=== PATIENT | male | born 1985 | race Caucasian/White ===

== ENCOUNTER → 2019-10-05 | Outpatient (CLI) | payer OTHER ==
[~2019-10-05] MED LIST: ALBU2.5V14 NEB; IOHEXOL 180 MG/ML 10 ML VIAL. ONE; MAGN400T5 PO; OMEP-229 PO; RIBO100T PO; TIOT18CA IH; methylPREDNISolone ACETATE 40 MG/ML VIAL. ONE; methylPREDNISolone ACETATE 80 MG/ML VIAL. ONE
--- NOTE | 2019-10-05 16:04 | PAIN ---
DATE OF SERVICE: 10/05/2019 INITIAL CONSULTATION FOR PAIN CLINIC CHIEF COMPLAINT: Low back and left lower extremity pain. HISTORY OF PRESENT ILLNESS: This is a 34-year-old male who presents with history of pain for about 1 year in the low back, left lower extremity on and off, originally much more intense about a year ago and then eased up and now it is getting more intense again and more painful in the low back radiating to posterior gluteus, posterior thigh, posterior calf into the foot with numbness and tingling in the foot and toes on the left side only. The patient reports no specific injury or accident he is aware of. Had a lot of heavy duty in the past, which had back pain on and off for years, but now much worse again over the past 11 months to a year. The patient reports the pain is now constant, is throbbing, numbness and tingling in the foot, changes during the day, worse with activity, standing, walking, changing positions, radiating in the left lower extremity, awakens him from sleep at least 3-5 times a night, does not affect his bowel or bladder control, but does affect his ability to walk with significant fatigability of the left leg. The patient has had epidural injections in the past with good results, also physical therapy and exercise, which he is doing on and off which all were helpful to some extent. The patient is taking Tylenol, which does decrease the pain to about a week ago. The patient reports a disability rating from 0-10, 10 being the worst, is a 6 with family and home responsibilities, 9 with recreation, 5 with social activity, 8 with occupation and sexual behavior, 5 with self-care and 6 with life support activities. The patient did have MRI scan of the lumbar spine showing at the L5-S1 level, large central and left greater than right paracentral disk protrusion with annular tear with severe narrowing on the left greater than right lateral recess and abutment of the bilateral descending S1 nerve root with mild spinal stenosis at that level as well. PAST MEDICAL HISTORY: Significant for hearing loss bilaterally, also arthritis. PREVIOUS SURGERY: Includes a right knee scope. CURRENT MEDICATIONS: Include magnesium, omeprazole, albuterol, tiotropium, and riboflavin. ALLERGIES: THE PATIENT IS ALLERGIC TO PREDNISONE ORALLY AND PERCOCET. FAMILY HISTORY: Significant for cancer, heart disease, fibromyalgia and vasculitis. SOCIAL HISTORY: The patient does not drink alcohol, does not smoke, does not use any illegal, illicit or recreational drugs. He is , lives with his spouse, lives locally in [place]. REVIEW OF SYSTEMS: The patient's review of systems is positive for those items mentioned in history of present illness. All systems reviewed and otherwise negative. It is complete, full and well documented on the patient's chart. PHYSICAL EXAMINATION: VITAL SIGNS: The patient's blood pressure 156/92, pulse 67, respirations 18, temperature 98.1 degrees Fahrenheit, height 6 feet 4 inches, weight is 303 pounds. GENERAL: The patient is awake, alert, oriented, appropriate, very pleasant demeanor. HEENT: Shows normocephalic, atraumatic. Extraocular movements are intact and symmetrical. Oral cavity: Mucous membranes moist and pink. Dentition is intact. NECK: Shows anterior throat supple without palpable lymphadenopathy noted. Swallow reflex symmetrical. CHEST: Shows normal on inspection. Breath sounds are clear bilaterally. HEART: Shows S1, S2 clear. No murmurs auscultated. ABDOMEN: Soft, nontender, nondistended. No palpable organomegaly is noted. No rebound or guarding demonstrated. BACK: Shows spine grossly in the midline. Normal appearing thoracic kyphosis and lumbar lordotic curvature. Lumbar paraspinous muscle shows symmetrical on inspection, with palpation shows some mild tenderness in the low lumbar distribution, slightly more on the left than the right, but symmetrical without evidence of atrophy, hypertrophy, no trigger points, no asymmetry. The patient has full rotational motion of lumbar spine, both laterally as well as extension and flexion without significant difficulty. No tenderness over the spinous processes, sacrum or sacroiliac regions. EXTREMITIES: Lower extremities show deep tendon reflexes 2+ in the patellar, 1+ tendo-calcaneus tendons. Motor exam is strong with 5/5 dorsiflexion, extension, quadriceps and hamstring flexion, symmetrical and equal bilaterally. Lower extremities are warm and dry to touch, equal in color and appearance. Peripheral pulses are 1+ posterior tibia. No peripheral edema is noted. Straight leg raise noted to be positive on the left at about 40 degrees, decreased with knee flexion, right side is negative. Gaenslen's and Checo's maneuvers are negative bilaterally as well. The patient is able to stand, stand on his toes without difficulty without loss of balance, walks with normal appearing gait without any assistive devices to ambulate. SKIN: Shows warm and dry, good turgor. No edema. No sores or bruising throughout. IMPRESSION: 1. This is a 34-year-old male with about 1 year history of low back and left lower extremity pain in a radicular fashion. 2. MRI scan of lumbar spine as noted. 3. Arthritis history. PLAN: Options were discussed with the patient including conservative medical management, physical therapies and interventional techniques. He would like to pursue interventional techniques. We discussed a lumbar epidural steroid injection using description as well as anatomical models to describe the procedure. Risks were then discussed including, but not limited to bleeding, infection, possibility of epidural hematoma, subsequent neurological compromise, dural puncture, headaches, spinal cord and/or nerve damage, side effects of steroid medication and poor results regarding pain control. The patient understands and wished to proceed. The patient will return to the clinic in approximately 2 weeks for followup. She was counseled on return appointment, activity level and side effects to be aware of. DIAGNOSES: Lumbar radiculopathy with lumbar degenerative disk disease with lumbar herniated disk. PROCEDURE: Lumbar epidural steroid injection, translaminar approach L5-S1 level using C-arm fluoroscopic guidance under sterile prep and drape using local anesthetic. MEDICATION INJECTED: A total of 120 mg Depo-Medrol plus 10 mL of preservative-free normal saline and 2 mL of contrast. CONDITION AT DISCHARGE: Stable. The patient tolerated procedure well, had no complications. WILLIE LANDON MD DR: CARLOS ENRIQUE/victorino JOB#: [id number] / [id number]
== END ==
LOC: PNCL 09:43
PROVIDERS: ATTEND Anesthesiology
DX: M51.16 Intervertebral disc disorders with radiculopathy, lumbar region (principal); H91.8X3 Other specified hearing loss, bilateral; Z87.39 Personal history of other diseases of the musculoskeletal system and connective tissue; Z88.8 Allergy status to other drugs, medicaments and biological substances
CPT/HCPCS: 62323; J1030; J1040; Q9965

== ENCOUNTER → 2019-11-09 | Outpatient (CLI) | payer OTHER ==
[~2019-11-09] MED LIST changes: -OMEP-229 PO; +OMEP20CA16 PO
--- NOTE | 2019-11-09 11:23 | PAIN ---
DATE OF SERVICE: 11/09/2019 PROGRESS NOTE PAIN CLINIC DIAGNOSES: Lumbar radiculopathy with lumbar degenerative disk disease and lumbar herniated disk. HISTORY OF PRESENT ILLNESS: The patient is a 34-year-old male, who returns for followup status post lumbar epidural steroid injection x 1 on 10/05/2019. The patient reports doing very well with about 50% improvement overall, initially was about 70-80% improvement and his left leg is no longer hurting, he just has pain in the low back now, the radiculopathy is much improved on the left side. The patient reports he has been increasing his distance walking, doing work activities, household activities, sleeping better with greater ease and comfort. It is beginning to awaken him from sleep again over the past 1-2 weeks, but reports doing much better than it was, still his left leg is almost pain-free. The patient reports the pain is a 6 on a scale of 10 at its worst over the past week, 4 on an average, 2 at its least and is a 4 today. The patient reports it is aching and sharp in the low back itself. The patient reports no new motor or sensory deficits, no new bowel or bladder incontinence. PHYSICAL EXAMINATION: VITAL SIGNS: The patient's blood pressure is 142/99, pulse 90, respirations 16, temperature is 98.0 degrees Fahrenheit, weight is 302 pounds. GENERAL: The patient is awake, alert, oriented, appropriate, very pleasant demeanor. HEENT: Shows normocephalic, atraumatic. Extraocular movements are intact and symmetrical. Oral cavity: Mucous membranes are moist and pink; dentition is intact. NECK: Shows anterior throat supple without palpable lymphadenopathy noted. Swallow reflex symmetrical. CHEST: Shows normal on inspection. Breath sounds are clear bilaterally. HEART: Shows S1, S2 clear. No murmurs auscultated. ABDOMEN: Soft, nontender and nondistended. No palpable organomegaly is noted. No rebound or guarding demonstrated. BACK: Shows spine grossly in the midline. Normal-appearing thoracic kyphosis and lumbar lordotic curvature. Lumbar paraspinous musculature shows symmetrical on inspection, on palpation shows some moderate tenderness diffusely, but only diffusely without significant radiation in the low lumbar distribution. The patient has good rotational motion of lumbar spine, both laterally as well as extension and flexion without difficulty. EXTREMITIES: Lower extremities show deep tendon reflexes are 2+ in the patellar and 1+ tendo-calcaneus tendons. Motor exam is strong with 5/5 dorsiflexion, extension, quadriceps and hamstring flexion. Peripheral pulses are 1+ posterior tibial. No peripheral edema is noted. Options were discussed with the patient. The patient's old chart was reviewed as his current medication regimen updated. Current review of systems updated today as well. We will proceed with a lumbar epidural steroid injection, second in this series with fluoroscopic guidance. Risks were again discussed including, but not limited to bleeding, infection, possibility of epidural hematoma, subsequent neurological compromise, dural puncture, headaches, spinal cord and/or nerve damage, side effects of steroid medication and poor results regarding pain control. The patient understands and wished to proceed. The patient will return to clinic in approximately 2 weeks for followup. He was counseled on return appointment, activity level and side effects to be aware of. DIAGNOSES: Lumbar radiculopathy with lumbar degenerative disk disease and lumbar herniated disk. PROCEDURE: Lumbar epidural steroid injection, translaminar approach at L5-S1 level using C-arm fluoroscopic guidance under sterile prep and drape using local anesthetic. MEDICATIONS INJECTED: A total of 120 mg Depo-Medrol plus 10 mL of preservative-free normal saline and 2 mL of contrast. CONDITION AT DISCHARGE: Stable. The patient tolerated the procedure well, had no complications. WILLIE LANDON MD DR: CARLOS ENRIQUE/victorino JOB#: [id number] / [id number]
== END ==
LOC: PNCL 08:51
PROVIDERS: ATTEND Anesthesiology
DX: M51.16 Intervertebral disc disorders with radiculopathy, lumbar region (principal)
CPT/HCPCS: 62323; J1030; J1040; Q9965

== ENCOUNTER → 2019-11-23 | Outpatient (CLI) | payer OTHER ==
[~2019-11-23] MED LIST changes: -IOHEXOL 180 MG/ML 10 ML VIAL. ONE; +TURM538C PO; -methylPREDNISolone ACETATE 40 MG/ML VIAL. ONE; -methylPREDNISolone ACETATE 80 MG/ML VIAL. ONE
--- NOTE | 2019-11-23 10:58 | PAIN ---
DATE OF SERVICE: 11/23/2019 PROGRESS NOTE FOR PAIN CLINIC DIAGNOSES: Lumbar radiculopathy with lumbar degenerative disk disease and lumbar herniated disk. HISTORY OF PRESENT ILLNESS: The patient is a 34-year-old male who returns for followup status post lumbar epidural steroid injection x 2. The patient reports about 80% improvement after last injection, was doing very well after the first, but even better after the second injection. The patient reports his pain is only minimal, although it can flare up if he is doing some increased activity, but he has been increasing his activity with greater ease and comfort, walking greater distances, doing work activities, household activities, traveling with greater ease and comfort, it occasionally awakens him from sleep, but not every night, usually about 4-6 hours before it bothers him when sleeping. The patient reports it is aching and sharp in the low back, constant with activity or increased activity and patient has been increasing his activity fairly significantly. The patient also has pain in bilateral knees, which is being worked up with his orthopedic physician. The patient reports that the pain is 7 on a scale of 10 at its worst in the past week, which is due to his knees not his back, 6 on average, 2 at its least and it is 2 in the back and a 6 in the knees today. The patient reports no new motor or sensory deficits, no new bowel or bladder incontinence or other complaints. PHYSICAL EXAMINATION: VITAL SIGNS: The patient's blood pressure is 160/103, pulse is 83, respirations are 16, temperature is 98.1 degrees Fahrenheit, weight is 303 pounds. GENERAL: The patient is awake, alert, oriented, appropriate, very pleasant demeanor. HEENT: Shows normocephalic, atraumatic. Extraocular movements are intact and symmetrical. Oral cavity: Mucous membranes moist and pink. NECK: Shows anterior throat supple. CHEST: Shows breath sounds clear to auscultation bilaterally. HEART: Shows S1, S2 clear. ABDOMEN: Soft, nontender. BACK: Shows spine grossly in the midline. Lumbar paraspinous muscle shows symmetrical on inspection, with palpation some moderate tenderness diffusely bilaterally going diffusely without significant radiation. The patient shows good rotational motion of lumbar spine, both laterally as well as extension and flexion without significant difficulty. EXTREMITIES: The patient's lower extremities show deep tendon reflexes 2+ in the patellar, 1+ in the tendo-calcaneus tendons. Motor exam is strong with 5/5 dorsiflexion, extension, quadriceps and hamstring flexion symmetrical bilaterally as well. Peripheral pulses are 1+ in the posterior tibia. No peripheral edema is noted. Options were discussed with the patient. The patient's old chart was reviewed and his current medication regimen updated. Current review of systems updated today as well. We will hold on any further injections at this time as the patient is doing quite a bit better. The patient will increase his activity as tolerated. Continue with stretching and strengthening exercises on his own. Follow up with his primary or with his orthopedic surgeon regarding his knees. Also discussed that is blood pressure is being elevated. We will follow up with primary care regarding his blood pressure issues as well. The patient will follow up with our office on as needed basis at this time. WILLIE LANDON MD DR: CARLOS ENRIQUE/victorino JOB#: [id number] / [id number]
== END | disposition home or self-care (01) ==
LOC: PNCL 08:53
PROVIDERS: ATTEND Anesthesiology
DX: M51.16 Intervertebral disc disorders with radiculopathy, lumbar region (principal)
CPT/HCPCS: G0463